=== PATIENT | male | born 1970 | race Hispanic/Latino ===

== ENCOUNTER 2021-12-09 20:49 | Inpatient (IN) | payer SELFPAY ==
[~2021-12-09] VITALS: Ht 152 cm; Wt 107.0 kg
[2021-12-09 21:10] LABS: BASOPHILS % 0.3 % (0.0-1.0); EOSINOPHILS # (AUTO) 0.1 (0.0-0.4); EOSINOPHILS % 0.8 % (0.0-6.0); HEMATOCRIT 35.9 % (38.2-49.6); HEMOGLOBIN 11.7 g/dL (14.0-18.0); LYMPHOCYTES # (AUTO) 0.9 (1.0-3.2); LYMPHOCYTES % 6.9 % (18.0-39.1); MEAN CORPUSCULAR HGB CONC 32.6 g/dL (31-35); MEAN CORPUSCULAR VOLUME 89.1 fL (81-99); MONOCYTES # (AUTO) 0.8 (0.2-0.8); MONOCYTES % 5.7 % (4.4-11.3); NEUTROPHILS # (AUTO) 11.2 (2.1-6.9); NEUTROPHILS % 85.2 % (38.7-80.0); PLATELET COUNT 294 x10e3/uL (140-360); RED BLOOD COUNT 4.03 x10e6/uL (4.3-5.7); RED CELL DISTRIBUTION WIDTH 12.3 % (11.7-14.4)
[2021-12-09 21:28] LABS: CLARITY,URINE SL CLOUDY (CLEAR); COLOR,URINE YELLOW (YELLOW); KETONES,URINE NEGATIVE (NEGATIVE); LEUKOCYTE ESTERASE ,URINE SMALL (NEGATIVE); NITRITE,URINE NEGATIVE (NEGATIVE); PROTEIN,URINE DIPSTICK 2+ (NEGATIVE); URINE UROBILINOGEN 0.2 mg/dL (0.2 - 1)
[2021-12-09 21:29] LABS: ALBUMIN 2.2 g/dL (3.5-5.0); ALBUMIN/GLOBULIN RATIO 0.3 (0.8-2.0); ANION GAP 26.9 mmol/L (8-16); CALCIUM 8.7 mg/dL (8.4-10.2); CREATININE, SERUM 13.59 mg/dL (0.72-1.25)
[2021-12-09] MEDS ORDERED: SODIUM BICARBONATE 8.4% INJ 50 ML SYR IV STA ×2 (21:31→21:49)
[2021-12-09] MEDS ORDERED: ALBUTEROL SULF 0.083% NEB SOLN 3 ML NEB NEB STA (21:31)
[2021-12-09] MEDS ORDERED: DEXTROSE 50% SYRINGE 50 ML IV STA (21:31)
[2021-12-09 21:32] LABS: POTASSIUM 6.9 mmol/L (3.5-5.1)
[2021-12-09 21:32] LABS: BACTERIA,URINE FEW /HPF; EPITHELIAL CELLS,URINE FEW /LPF; RBC,URINE 21-50 /HPF (0-5)
[2021-12-09 21:36] LABS: CREATINE KINASE MB 3.6 ng/mL (0-5.0)
[2021-12-09] MEDS ORDERED: SOD POLYSTYRENE SULFONATE SUSP 15 GM/60 ML BTL PO ONE (21:45)
[2021-12-09] MEDS ORDERED: FUROSEMIDE INJ 100 MG in SODIUM CHLORIDE 0.9% 90 ML IV SCH (21:45)
[2021-12-09] MEDS ORDERED: INSULIN REGULAR, HUMAN 100 UNIT/1 ML IV ONE (21:45)
[2021-12-09] MEDS ORDERED: FUROSEMIDE INJ 10 MG/ML 10 ML VIAL IV ONE (21:45)
[2021-12-09] MEDS ORDERED: CALCIUM GLUCONATE 10% INJ 13.95 MEQ in SODIUM CHLORIDE 0.9% 100 ML 100 ML IV ONE (21:45)
[2021-12-09] MEDS ORDERED: CALCIUM GLUC 1 G/50 ML NACL 50 ML IV ONE (21:51)
[2021-12-09] MEDS ORDERED: CALCIUM GLUC 1 G/50 ML NACL 100 ML IV ONE (21:56)
[2021-12-09] MEDS: CALCIUM GLUC 1 G/50 ML NACL 50 ML IV SCH ×3 (22:00→23:11)
[2021-12-09] MEDS ORDERED: SODIUM CHLORIDE 0.9% 100 ML ONE (22:05)
[2021-12-09] MEDS ORDERED: SODIUM BICARBONATE 8.4% SYRING 50 ML ONE (22:05)
[2021-12-09] MEDS ORDERED: FUROSEMIDE INJ 10 MG/ML 4 ML VIAL ONE (22:06)
[2021-12-09] MEDS ORDERED: ENOXAPARIN INJ 80 MG/0.8 ML SYR SC SCH (22:30)
[2021-12-09] MEDS ORDERED: ONDANSETRON HCL INJ 2MG/ML 2ML 2 MG/ML VIAL IV PRN (22:30)
[2021-12-09] MEDS ORDERED: SODIUM CHLORIDE FLUSH 10 ML SYR INJ PRN (22:30)
[2021-12-09] MEDS: CEFTRIAXONE 2 GM in SODIUM CHLORIDE 0.9% 100 ML IV SCH (23:25)
[2021-12-09 23:27] LABS: CREATINE KINASE MB 3.7 ng/mL (0-5.0)
[2021-12-09] MEDS ORDERED: HYDRALAZINE HCL 20 MG/ML VIAL IV STA (23:28)
[2021-12-09] MEDS ORDERED: HYDRALAZINE HCL 20 MG/ML VIAL IV PRN (23:30)
[2021-12-09] MEDS ORDERED: HYDRALAZINE HCL 20 MG/ML VIAL ONE (23:41)
[2021-12-10] VITALS (20 sets, daily range): BP systolic 132–188; BP diastolic 80–126
[2021-12-10 00:14] LABS: INR 1.12; PROTHROMBIN TIME 15.2 seconds (11.9-14.5)
[2021-12-10 00:15] LABS: PARTIAL THROMBOPLASTIN TIME 27.8 seconds (23.8-35.5)
[2021-12-10 00:43] LABS: CREATINE KINASE MB 3.4 ng/mL (0-5.0)
[2021-12-10] MEDS ORDERED: SODIUM BICARBONATE 8.4% INJ 50 ML SYR IV STA (00:43)
[2021-12-10] MEDS ORDERED: SOD POLYSTYRENE SULFONATE SUSP 15 GM/60 ML BTL PO ONE ×2 (00:45→08:00)
[2021-12-10] MEDS ORDERED: INSULIN REGULAR, HUMAN 100 UNIT/1 ML IV ONE ×2 (00:45→08:00)
[2021-12-10] MEDS ORDERED: FUROSEMIDE INJ 10 MG/ML 10 ML VIAL IV ONE (00:45)
[2021-12-10] MEDS ORDERED: DEXTROSE 50% SYRINGE 50 ML IV STA (00:50)
[2021-12-10] MEDS ORDERED: SODIUM BICARBONATE 8.4% SYRING 100 ML ONE (01:04)
[2021-12-10] MEDS ORDERED: SOD POLYSTYRENE SULFONATE SUSP 15 GM/60 ML BTL ONE (01:04)
[2021-12-10] MEDS ORDERED: FUROSEMIDE INJ 10 MG/ML 4 ML VIAL ONE (01:04)
[2021-12-10] MEDS ORDERED: DEXTROSE 50% SYRINGE 50 ML IV ONE ×2 (01:04→08:00)
[2021-12-10] MEDS: CALCIUM GLUC 1 G/50 ML NACL 50 ML IV SCH ×3 (01:11→03:00)
[2021-12-10] MEDS ORDERED: HYDRALAZINE HCL 20 MG/ML VIAL IV PRN (02:15)
[2021-12-10] MEDS ORDERED: DEXTROSE 50% SYRINGE 50 ML IV PRN (02:15)
[2021-12-10] MEDS ORDERED: DIPHENHYDRAMINE HCL 25 MG CAP PO PRN (02:15)
[2021-12-10] MEDS ORDERED: BENZONATATE 100 MG CAP PO PRN (02:15)
[2021-12-10] MEDS ORDERED: DOCUSATE SODIUM 100 MG CAP PO PRN (02:15)
[2021-12-10] MEDS ORDERED: ACETAMINOPHEN 325 MG TAB PO PRN (02:15)
[2021-12-10] MEDS ORDERED: LACTULOSE SYRUP 20 GM/30 ML UDC PO SCH (02:15)
[2021-12-10] MEDS ORDERED: SIMETHICONE 80 MG CHEW PO PRN (02:15)
[2021-12-10] MEDS ORDERED: CHLORASEPTIC SPRAY 177 ML BTL MM PRN (02:15)
[2021-12-10] MEDS ORDERED: MELATONIN 5 MG TABLET PO PRN (02:15)
[2021-12-10] MEDS ORDERED: ALBUTEROL/IPRATROPIUM 3 ML NEB NEB PRN (02:15)
[2021-12-10] MEDS ORDERED: LIDOCAINE 4% PATCH TP PRN (02:15)
[2021-12-10] MEDS ORDERED: ONDANSETRON HCL INJ 2MG/ML 2ML 2 MG/ML VIAL IV PRN (02:15)
[2021-12-10 06:15] LABS: BASOPHILS # (AUTO) 0.1 (0.0-0.1); BASOPHILS % 0.3 % (0.0-1.0); EOSINOPHILS # (AUTO) 0.2 (0.0-0.4); EOSINOPHILS % 1.3 % (0.0-6.0); HEMATOCRIT 31.2 % (38.2-49.6); HEMOGLOBIN 10.4 g/dL (14.0-18.0); LYMPHOCYTES # (AUTO) 0.9 (1.0-3.2); LYMPHOCYTES % 5.9 % (18.0-39.1); MEAN CORPUSCULAR HEMOGLOBIN 29.2 pg (28-32); MEAN CORPUSCULAR HGB CONC 33.3 g/dL (31-35); MEAN CORPUSCULAR VOLUME 87.6 fL (81-99); MONOCYTES # (AUTO) 0.8 (0.2-0.8); MONOCYTES % 5.1 % (4.4-11.3); NEUTROPHILS # (AUTO) 12.8 (2.1-6.9); NEUTROPHILS % 86.1 % (38.7-80.0); PLATELET COUNT 323 x10e3/uL (140-360); RED BLOOD COUNT 3.56 x10e6/uL (4.3-5.7); RED CELL DISTRIBUTION WIDTH 12.5 % (11.7-14.4)
[2021-12-10 06:52] LABS: ALBUMIN/GLOBULIN RATIO 0.3 (0.8-2.0); ANION GAP 27.3 mmol/L (8-16); CALCIUM 9.5 mg/dL (8.4-10.2); CREATININE, SERUM 13.99 mg/dL (0.72-1.25)
[2021-12-10 07:04] LABS: POTASSIUM 6.3 mmol/L (3.5-5.1)
[2021-12-10 07:10] LABS: CREATINE KINASE MB 4.2 ng/mL (0-5.0)
[2021-12-10] MEDS ORDERED: PANTOPRAZOLE SOD 40 MG TABEC PO SCH (07:30)
[2021-12-10] MEDS ORDERED: CALCIUM GLUC 1 G/50 ML NACL 100 ML IV ONE (08:00)
[2021-12-10] MEDS ORDERED: SODIUM BICARBONATE 8.4% 50 ML VIAL IV ONE (08:00)
[2021-12-10] MEDS ORDERED: HEPARIN SOD (PORCINE) 1000 UNIT/ML SDV ONE (08:48)
[2021-12-10] MEDS ORDERED: SODIUM CHLORIDE 0.9% 1000ML 2,000 ML ONE (10:58)
[2021-12-10 10:59] LABS: PHOSPHORUS 9.2 MG/DL (2.3-4.7)
[2021-12-10] MEDS ORDERED: NIFEDIPINE CR 30 MG TAB PO SCH (11:45)
[2021-12-10 11:47] LABS: HIV 1&2 AB SCREEN NON-REACTIVE (NONREACTIVE)
[2021-12-10] MEDS ORDERED: SODIUM CHLORIDE 0.9% 250ML 250 ML IV ONE (12:45)
[2021-12-10] MEDS ORDERED: FUROSEMIDE INJ 100 MG in SODIUM CHLORIDE 0.9% 90 ML IV SCH (13:00)
[2021-12-10 13:14] LABS: HEMATOCRIT 28.3 % (38.2-49.6); HEMOGLOBIN 9.1 g/dL (14.0-18.0)
[2021-12-10 13:24] LABS: INR 1.26; PROTHROMBIN TIME 16.7 seconds (11.9-14.5)
[2021-12-10] MEDS: DEXAMETHASONE SOD PHOS 10 MG/1 ML VIAL IV SCH (16:17)
[2021-12-10] MEDS: METOPROLOL TARTRATE 25 MG TAB PO SCH (16:18)
[2021-12-10] MEDS: ZINC SULFATE 50 MG CAP PO SCH (16:18)
[2021-12-10] MEDS: ASCORBIC ACID 500 MG TAB PO SCH ×2 (16:18→16:19)
[2021-12-10] MEDS: CEFTRIAXONE 2 GM in SODIUM CHLORIDE 0.9% 100 ML IV SCH (16:18)
[2021-12-10 16:29] LABS: THYROID STIMULATING HORMONE 1.31 uIU/mL (0.350-4.940)
[2021-12-10] MEDS ORDERED: ENOXAPARIN 30 MG/0.3 ML SYR SC SCH (17:00)
[2021-12-10] MEDS ORDERED: CARVEDILOL 3.125 MG TAB PO SCH (17:00)
[2021-12-10 18:48] LABS: HEMATOCRIT 25.1 % (38.2-49.6); HEMOGLOBIN 8.4 g/dL (14.0-18.0)
[2021-12-10] MEDS ORDERED: SODIUM CHLORIDE 0.9% 250ML 500 ML ONE (23:01)
[2021-12-11] VITALS (23 sets, daily range): BP systolic 130–171; BP diastolic 9–100
[2021-12-11 00:13] LABS: HEMATOCRIT 25.5 % (38.2-49.6); HEMOGLOBIN 8.1 g/dL (14.0-18.0)
[2021-12-11] MEDS ORDERED: SODIUM CHLORIDE 0.9% 250ML 250 ML ONE (01:48)
[2021-12-11 05:42] LABS: BASOPHILS # (AUTO) 0.1 (0.0-0.1); BASOPHILS % 0.4 % (0.0-1.0); EOSINOPHILS # (AUTO) 0.1 (0.0-0.4); EOSINOPHILS % 0.7 % (0.0-6.0); HEMATOCRIT 23.1 % (38.2-49.6); HEMOGLOBIN 7.6 g/dL (14.0-18.0); LYMPHOCYTES # (AUTO) 1.1 (1.0-3.2); LYMPHOCYTES % 8.7 % (18.0-39.1); MEAN CORPUSCULAR HEMOGLOBIN 29.9 pg (28-32); MEAN CORPUSCULAR HGB CONC 32.9 g/dL (31-35); MEAN CORPUSCULAR VOLUME 90.9 fL (81-99); MONOCYTES # (AUTO) 0.8 (0.2-0.8); MONOCYTES % 6.1 % (4.4-11.3); NEUTROPHILS # (AUTO) 10.1 (2.1-6.9); NEUTROPHILS % 82.4 % (38.7-80.0); PLATELET COUNT 333 x10e3/uL (140-360); RED BLOOD COUNT 2.54 x10e6/uL (4.3-5.7); RED CELL DISTRIBUTION WIDTH 13.1 % (11.7-14.4)
[2021-12-11 06:16] LABS: ALBUMIN 2.3 g/dL (3.5-5.0); ALBUMIN/GLOBULIN RATIO 0.5 (0.8-2.0); CALCIUM 7.3 mg/dL (8.4-10.2); CREATININE, SERUM 12.51 mg/dL (0.72-1.25)
[2021-12-11 06:37] LABS: MAGNESIUM 2.7 MG/DL (1.3-2.1); PHOSPHORUS 10.9 MG/DL (2.3-4.7)
[2021-12-11] MEDS ORDERED: SODIUM CHLORIDE 0.9% 1000ML 2,000 ML ONE (09:09)
[2021-12-11] MEDS: CEFTRIAXONE 2 GM in SODIUM CHLORIDE 0.9% 100 ML IV SCH (10:59)
[2021-12-11] MEDS: DEXAMETHASONE SOD PHOS 10 MG/1 ML VIAL IV SCH (10:59)
[2021-12-11] MEDS: ASCORBIC ACID 500 MG TAB PO SCH ×2 (11:00→17:11)
[2021-12-11] MEDS: ZINC SULFATE 50 MG CAP PO SCH (11:00)
[2021-12-11] MEDS: METOPROLOL TARTRATE 25 MG TAB PO SCH ×2 (11:00→17:10)
[2021-12-11 14:39] LABS: BASOPHILS % 0.3 % (0.0-1.0); EOSINOPHILS % 0.2 % (0.0-6.0); HEMATOCRIT 25.1 % (38.2-49.6); HEMOGLOBIN 7.9 g/dL (14.0-18.0); LYMPHOCYTES # (AUTO) 0.7 (1.0-3.2); MEAN CORPUSCULAR HGB CONC 31.5 g/dL (31-35); MEAN CORPUSCULAR VOLUME 92.3 fL (81-99); MONOCYTES # (AUTO) 0.5 (0.2-0.8); MONOCYTES % 3.4 % (4.4-11.3); NEUTROPHILS # (AUTO) 12.9 (2.1-6.9); NEUTROPHILS % 89.9 % (38.7-80.0); PLATELET COUNT 342 x10e3/uL (140-360); RED BLOOD COUNT 2.72 x10e6/uL (4.3-5.7)
[2021-12-11 14:44] LABS: ANION GAP 19.6 mmol/L (8-16); CALCIUM 8.4 mg/dL (8.4-10.2); CREATININE, SERUM 8.11 mg/dL (0.72-1.25); POTASSIUM 4.6 mmol/L (3.5-5.1)
[2021-12-11 18:49] LABS: HEMOGLOBIN 8.1 g/dL (14.0-18.0)
[2021-12-12] VITALS (22 sets, daily range): BP systolic 100–175; BP diastolic 57–113
[2021-12-12 00:35] LABS: HEMATOCRIT 24.1 % (38.2-49.6); HEMOGLOBIN 7.7 g/dL (14.0-18.0)
[2021-12-12 05:15] LABS: BASOPHILS % 0.3 % (0.0-1.0); EOSINOPHILS # (AUTO) 0.4 (0.0-0.4); EOSINOPHILS % 2.4 % (0.0-6.0); HEMATOCRIT 23.5 % (38.2-49.6); HEMOGLOBIN 7.6 g/dL (14.0-18.0); LYMPHOCYTES # (AUTO) 1.9 (1.0-3.2); LYMPHOCYTES % 12.5 % (18.0-39.1); MEAN CORPUSCULAR HEMOGLOBIN 29.3 pg (28-32); MEAN CORPUSCULAR HGB CONC 32.3 g/dL (31-35); MEAN CORPUSCULAR VOLUME 90.7 fL (81-99); MONOCYTES % 6.3 % (4.4-11.3); NEUTROPHILS # (AUTO) 11.6 (2.1-6.9); NEUTROPHILS % 77.1 % (38.7-80.0); PLATELET COUNT 377 x10e3/uL (140-360); RED BLOOD COUNT 2.59 x10e6/uL (4.3-5.7); RED CELL DISTRIBUTION WIDTH 12.6 % (11.7-14.4)
[2021-12-12 05:22] LABS: CALCIUM 7.7 mg/dL (8.4-10.2); CREATININE, SERUM 9.38 mg/dL (0.72-1.25)
[2021-12-12] MEDS: CEFTRIAXONE 2 GM in SODIUM CHLORIDE 0.9% 100 ML IV SCH (09:21)
[2021-12-12] MEDS: DEXAMETHASONE SOD PHOS 10 MG/1 ML VIAL IV SCH (09:21)
[2021-12-12] MEDS: METOPROLOL TARTRATE 25 MG TAB PO SCH ×2 (09:22→17:00)
[2021-12-12] MEDS: ASCORBIC ACID 500 MG TAB PO SCH ×2 (09:22→17:00)
[2021-12-12] MEDS: ZINC SULFATE 50 MG CAP PO SCH (09:22)
[2021-12-12] MEDS: NIFEDIPINE CR 30 MG TAB PO SCH (09:23)
[2021-12-12 12:12] LABS: HEMATOCRIT 26.7 % (38.2-49.6); HEMOGLOBIN 8.5 g/dL (14.0-18.0)
[2021-12-12 20:07] LABS: HEMATOCRIT 25.8 % (38.2-49.6); HEMOGLOBIN 8.3 g/dL (14.0-18.0)
[2021-12-13] VITALS (7 sets, daily range): BP systolic 112–142; BP diastolic 77–94
[2021-12-13 05:45] LABS: BASOPHILS # (AUTO) 0.1 (0.0-0.1); BASOPHILS % 0.4 % (0.0-1.0); EOSINOPHILS # (AUTO) 0.3 (0.0-0.4); HEMATOCRIT 24.5 % (38.2-49.6); HEMOGLOBIN 7.7 g/dL (14.0-18.0); LYMPHOCYTES # (AUTO) 2.2 (1.0-3.2); MEAN CORPUSCULAR HEMOGLOBIN 28.9 pg (28-32); MEAN CORPUSCULAR HGB CONC 31.4 g/dL (31-35); MEAN CORPUSCULAR VOLUME 92.1 fL (81-99); MONOCYTES % 6.6 % (4.4-11.3); NEUTROPHILS # (AUTO) 11.6 (2.1-6.9); NEUTROPHILS % 74.3 % (38.7-80.0); PLATELET COUNT 347 x10e3/uL (140-360); RED BLOOD COUNT 2.66 x10e6/uL (4.3-5.7); RED CELL DISTRIBUTION WIDTH 12.3 % (11.7-14.4)
[2021-12-13 06:47] LABS: ALBUMIN 2.3 g/dL (3.5-5.0); ALBUMIN/GLOBULIN RATIO 0.4 (0.8-2.0); ANION GAP 20.4 mmol/L (8-16); CALCIUM 8.1 mg/dL (8.4-10.2); CREATININE, SERUM 6.97 mg/dL (0.72-1.25); POTASSIUM 4.4 mmol/L (3.5-5.1)
[2021-12-13] MEDS: DEXAMETHASONE SOD PHOS 10 MG/1 ML VIAL IV SCH (08:48)
[2021-12-13] MEDS: CEFTRIAXONE 2 GM in SODIUM CHLORIDE 0.9% 100 ML IV SCH (08:48)
[2021-12-13] MEDS: METOPROLOL TARTRATE 25 MG TAB PO SCH ×2 (08:49→16:16)
[2021-12-13] MEDS ORDERED: ONDANSETRON HCL 4 MG ORAL DISINTEGRATING TAB PO PRN (11:00)
[2021-12-13] MEDS ORDERED: FENTANYL CITRATE/PF 100MCG/2 ML INJ ONE (11:51)
[2021-12-13] MEDS ORDERED: MIDAZOLAM HCL 2 MG/2 ML VIAL ONE (11:51)
[2021-12-13] MEDS ORDERED: SODIUM CHLORIDE 0.9% 250ML 250 ML ONE (11:53)
[2021-12-13] MEDS ORDERED: LIDOCAINE HCL 1% LOCAL INJ 20 ML VIAL ONE (11:57)
[2021-12-13] MEDS ORDERED: HYDRALAZINE HCL 20 MG/ML VIAL ONE (12:23)
[2021-12-13] MEDS: ASCORBIC ACID 500 MG TAB PO SCH ×2 (14:29→16:16)
[2021-12-13] MEDS: ZINC SULFATE 50 MG CAP PO SCH (14:29)
[2021-12-13] MEDS: NIFEDIPINE CR 30 MG TAB PO SCH (14:30)
[2021-12-13] MEDS: PANTOPRAZOLE SOD 40 MG TABEC PO SCH (16:16)
[2021-12-13] MEDS ORDERED: AZITHROMYCIN 250 MG TAB PO SCH (22:00)
[2021-12-13 22:08] LABS: ALPHA 2 GLOBULIN URINE PEP 14.3 % (.)
[2021-12-14] VITALS (8 sets, daily range): BP systolic 98–157; BP diastolic 66–94
[2021-12-14 06:01] LABS: BASOPHILS % 0.2 % (0.0-1.0); EOSINOPHILS # (AUTO) 0.2 (0.0-0.4); HEMATOCRIT 24.5 % (38.2-49.6); HEMOGLOBIN 7.8 g/dL (14.0-18.0); LYMPHOCYTES # (AUTO) 2.5 (1.0-3.2); LYMPHOCYTES % 15.1 % (18.0-39.1); MEAN CORPUSCULAR HEMOGLOBIN 29.4 pg (28-32); MEAN CORPUSCULAR HGB CONC 31.8 g/dL (31-35); MEAN CORPUSCULAR VOLUME 92.5 fL (81-99); MONOCYTES # (AUTO) 1.1 (0.2-0.8); NEUTROPHILS % 73.9 % (38.7-80.0); PLATELET COUNT 380 x10e3/uL (140-360); RED BLOOD COUNT 2.65 x10e6/uL (4.3-5.7); RED CELL DISTRIBUTION WIDTH 12.4 % (11.7-14.4)
[2021-12-14 06:21] LABS: ANION GAP 20.1 mmol/L (8-16); CALCIUM 7.8 mg/dL (8.4-10.2); CREATININE, SERUM 8.97 mg/dL (0.72-1.25); POTASSIUM 4.1 mmol/L (3.5-5.1)
[2021-12-14] MEDS: PANTOPRAZOLE SOD 40 MG TABEC PO SCH ×2 (07:52→08:37)
[2021-12-14] MEDS: DEXAMETHASONE SOD PHOS 10 MG/1 ML VIAL IV SCH (08:36)
[2021-12-14] MEDS: CEFTRIAXONE 2 GM in SODIUM CHLORIDE 0.9% 100 ML IV SCH (08:37)
[2021-12-14] MEDS: METOPROLOL TARTRATE 25 MG TAB PO SCH ×2 (08:37→16:39)
[2021-12-14] MEDS: ASCORBIC ACID 500 MG TAB PO SCH ×2 (08:37→16:38)
[2021-12-14] MEDS: ZINC SULFATE 50 MG CAP PO SCH (08:37)
[2021-12-14] MEDS: NIFEDIPINE CR 30 MG TAB PO SCH (08:38)
[2021-12-14] MEDS ORDERED: SODIUM CHLORIDE 0.9% 1000ML 2,000 ML ONE (09:16)
[2021-12-14] MEDS ORDERED: HEPARIN SOD (PORCINE) 1000 UNIT/ML SDV ONE (12:57)
[2021-12-15] VITALS (7 sets, daily range): BP systolic 108–147; BP diastolic 75–93
[2021-12-15 05:59] LABS: BASOPHILS # (AUTO) 0.1 (0.0-0.1); BASOPHILS % 0.3 % (0.0-1.0); EOSINOPHILS # (AUTO) 0.3 (0.0-0.4); EOSINOPHILS % 1.8 % (0.0-6.0); HEMATOCRIT 25.2 % (38.2-49.6); LYMPHOCYTES # (AUTO) 3.2 (1.0-3.2); LYMPHOCYTES % 18.7 % (18.0-39.1); MEAN CORPUSCULAR HGB CONC 31.7 g/dL (31-35); MEAN CORPUSCULAR VOLUME 91.3 fL (81-99); MONOCYTES # (AUTO) 1.1 (0.2-0.8); MONOCYTES % 6.2 % (4.4-11.3); NEUTROPHILS # (AUTO) 11.6 (2.1-6.9); PLATELET COUNT 344 x10e3/uL (140-360); RED BLOOD COUNT 2.76 x10e6/uL (4.3-5.7); RED CELL DISTRIBUTION WIDTH 12.7 % (11.7-14.4)
[2021-12-15 06:16] LABS: ALBUMIN 2.5 g/dL (3.5-5.0); ALBUMIN/GLOBULIN RATIO 0.5 (0.8-2.0); ANION GAP 17.1 mmol/L (8-16); CALCIUM 7.6 mg/dL (8.4-10.2); CREATININE, SERUM 6.49 mg/dL (0.72-1.25); POTASSIUM 4.1 mmol/L (3.5-5.1)
[2021-12-15] MEDS: DEXAMETHASONE SOD PHOS 10 MG/1 ML VIAL IV SCH (09:15)
[2021-12-15] MEDS: METOPROLOL TARTRATE 25 MG TAB PO SCH ×2 (09:15→16:26)
[2021-12-15] MEDS: PANTOPRAZOLE SOD 40 MG TABEC PO SCH ×2 (09:15→16:26)
[2021-12-15] MEDS: NIFEDIPINE CR 30 MG TAB PO SCH (09:26)
[2021-12-15] MEDS: ASCORBIC ACID 500 MG TAB PO SCH ×2 (09:26→16:26)
[2021-12-15] MEDS: ZINC SULFATE 50 MG CAP PO SCH (09:26)
[2021-12-15] MEDS ORDERED: METHYLPREDNISOLONE SOD SUCC 1,000 MG/8 ML VIAL IV ONE (16:00)
[2021-12-15] MEDS: SODIUM CHLORIDE 0.9% IV SCH (16:26)
[2021-12-15] MEDS: METHYLPREDNISOLONE SOD SUCC IV SCH (16:26)
[2021-12-16] VITALS (7 sets, daily range): BP systolic 124–158; BP diastolic 74–101
[2021-12-16 08:29] LABS: BASOPHILS % 0.1 % (0.0-1.0); HEMATOCRIT 23.5 % (38.2-49.6); HEMOGLOBIN 7.8 g/dL (14.0-18.0); LYMPHOCYTES # (AUTO) 1.2 (1.0-3.2); LYMPHOCYTES % 7.9 % (18.0-39.1); MEAN CORPUSCULAR HEMOGLOBIN 29.5 pg (28-32); MEAN CORPUSCULAR HGB CONC 33.2 g/dL (31-35); MONOCYTES # (AUTO) 0.4 (0.2-0.8); MONOCYTES % 2.7 % (4.4-11.3); NEUTROPHILS # (AUTO) 13.3 (2.1-6.9); NEUTROPHILS % 86.3 % (38.7-80.0); PLATELET COUNT 378 x10e3/uL (140-360); RED BLOOD COUNT 2.64 x10e6/uL (4.3-5.7); RED CELL DISTRIBUTION WIDTH 12.6 % (11.7-14.4)
[2021-12-16] MEDS ORDERED: METHYLPREDNISOLONE SOD SUCC IV ONE (09:00)
[2021-12-16] MEDS ORDERED: METHYLPREDNISOLONE SOD SUCC 1,000 MG/8 ML VIAL IV ONE (09:00)
[2021-12-16] MEDS ORDERED: SODIUM CHLORIDE 0.9% IV ONE (09:00)
[2021-12-16 09:02] LABS: ALBUMIN 2.6 g/dL (3.5-5.0); ALBUMIN/GLOBULIN RATIO 0.5 (0.8-2.0); ANION GAP 22.5 mmol/L (8-16); CALCIUM 8.4 mg/dL (8.4-10.2); CREATININE, SERUM 8.64 mg/dL (0.72-1.25); POTASSIUM 4.5 mmol/L (3.5-5.1)
[2021-12-16] MEDS: METHYLPREDNISOLONE SOD SUCC IV SCH (09:18)
[2021-12-16] MEDS: ASCORBIC ACID 500 MG TAB PO SCH ×2 (09:18→16:33)
[2021-12-16] MEDS: SODIUM CHLORIDE 0.9% IV SCH (09:18)
[2021-12-16] MEDS: NIFEDIPINE CR 30 MG TAB PO SCH (09:18)
[2021-12-16] MEDS: ZINC SULFATE 50 MG CAP PO SCH (09:18)
[2021-12-16] MEDS: PANTOPRAZOLE SOD 40 MG TABEC PO SCH ×2 (09:18→16:33)
[2021-12-16] MEDS: METOPROLOL TARTRATE 25 MG TAB PO SCH ×2 (09:18→16:33)
[2021-12-16 21:34] LABS: % IRON SATURATION 22 % (15-50); IRON 60 ug/dL (65-175); TOTAL IRON BINDING CAPACITY 269 ug/dL (261-478); TRANSFERRIN 192 mg/dL (174-364)
[2021-12-17] VITALS (10 sets, daily range): BP systolic 114–159; BP diastolic 83–102
[2021-12-17 05:26] LABS: BASOPHILS % 0.1 % (0.0-1.0); HEMATOCRIT 21.9 % (38.2-49.6); HEMOGLOBIN 7.3 g/dL (14.0-18.0); LYMPHOCYTES # (AUTO) 1.1 (1.0-3.2); LYMPHOCYTES % 5.3 % (18.0-39.1); MEAN CORPUSCULAR HEMOGLOBIN 29.7 pg (28-32); MEAN CORPUSCULAR HGB CONC 33.3 g/dL (31-35); MONOCYTES # (AUTO) 1.1 (0.2-0.8); MONOCYTES % 5.4 % (4.4-11.3); NEUTROPHILS # (AUTO) 17.3 (2.1-6.9); NEUTROPHILS % 86.9 % (38.7-80.0); PLATELET COUNT 440 x10e3/uL (140-360); RED BLOOD COUNT 2.46 x10e6/uL (4.3-5.7)
[2021-12-17 05:49] LABS: ANION GAP 21.4 mmol/L (8-16); CALCIUM 7.8 mg/dL (8.4-10.2); CREATININE, SERUM 9.38 mg/dL (0.72-1.25); POTASSIUM 4.4 mmol/L (3.5-5.1)
[2021-12-17] MEDS: PANTOPRAZOLE SOD 40 MG TABEC PO SCH ×2 (07:30→17:49)
[2021-12-17] MEDS: ASCORBIC ACID 500 MG TAB PO SCH ×2 (09:00→17:00)
[2021-12-17] MEDS: NIFEDIPINE CR 30 MG TAB PO SCH (09:00)
[2021-12-17] MEDS ORDERED: METHYLPREDNISOLONE SOD SUCC 1,000 MG/8 ML VIAL IV ONE (09:00)
[2021-12-17] MEDS: METOPROLOL TARTRATE 25 MG TAB PO SCH ×2 (09:00→17:49)
[2021-12-17] MEDS: ZINC SULFATE 50 MG CAP PO SCH (09:00)
[2021-12-17] MEDS: SODIUM CHLORIDE 0.9% IV SCH (09:41)
[2021-12-17] MEDS: METHYLPREDNISOLONE SOD SUCC IV SCH (09:41)
[2021-12-17] MEDS ORDERED: SODIUM CHLORIDE 0.9% 1000ML 2,000 ML IV PRN (10:45)
[2021-12-17] MEDS ORDERED: HEPARIN SOD (PORCINE) 1000 UNIT/ML SDV IV PRN (10:45)
[2021-12-17] MEDS ORDERED: SODIUM CHLORIDE 0.9% 250ML 500 ML IV PRN (10:45)
[2021-12-17] MEDS ORDERED: ALBUMIN 25% 12.5GM 0.25 GM/ML BTL IV PRN (10:45)
[2021-12-18 01:15] VITALS: BP 125/79
[2021-12-18 05:51] VITALS: BP 144/83
[2021-12-18 05:53] LABS: BASOPHILS % 0.1 % (0.0-1.0); HEMATOCRIT 22.7 % (38.2-49.6); HEMOGLOBIN 7.6 g/dL (14.0-18.0); LYMPHOCYTES % 6.1 % (18.0-39.1); MEAN CORPUSCULAR HEMOGLOBIN 29.9 pg (28-32); MEAN CORPUSCULAR HGB CONC 33.5 g/dL (31-35); MEAN CORPUSCULAR VOLUME 89.4 fL (81-99); MONOCYTES # (AUTO) 1.1 (0.2-0.8); NEUTROPHILS # (AUTO) 13.2 (2.1-6.9); NEUTROPHILS % 85.1 % (38.7-80.0); PLATELET COUNT 446 x10e3/uL (140-360); RED BLOOD COUNT 2.54 x10e6/uL (4.3-5.7); RED CELL DISTRIBUTION WIDTH 13.5 % (11.7-14.4)
[2021-12-18 06:15] LABS: ANION GAP 18.4 mmol/L (8-16); CALCIUM 7.6 mg/dL (8.4-10.2); CREATININE, SERUM 6.41 mg/dL (0.72-1.25); POTASSIUM 4.4 mmol/L (3.5-5.1)
[2021-12-18] MEDS: PANTOPRAZOLE SOD 40 MG TABEC PO SCH (07:30)
[2021-12-18 08:00] VITALS: BP 144/83
[2021-12-18 08:02] VITALS: BP 146/91
[2021-12-18] MEDS: METOPROLOL TARTRATE 25 MG TAB PO SCH (09:00)
[2021-12-18] MEDS: NIFEDIPINE CR 30 MG TAB PO SCH (09:00)
[2021-12-18] MEDS: ASCORBIC ACID 500 MG TAB PO SCH (09:00)
[2021-12-18] MEDS ORDERED: PREDNISONE 20 MG TAB PO SCH (09:00)
[2021-12-18] MEDS: ZINC SULFATE 50 MG CAP PO SCH (09:00)
[2021-12-18 12:04] VITALS: BP 94/62
[2021-12-18] MEDS ORDERED: METOPROLOL TART25 GM PO (14:10)
[2021-12-18] MEDS ORDERED: PROCARDIA XL30 MG PO (14:11)
[2021-12-18] MEDS ORDERED: PREDNISONE20 MG PO (14:11)
== END 2021-12-18 14:47 | disposition home or self-care (01) | DRG 698 ==
LOC: ER 20:52 → ERHOLD 22:28 → IMCU 12-10 01:47 → ICU 12-10 17:25 → MED/SURG2 12-12 11:48
PROVIDERS: ADMIT Internal Medicine; ATTEND Internal Medicine
PROC: 02HV33Z Insertion of Infusion Device into Superior Vena Cava, Percutaneous Approach (ICD-10-PCS; principal; 2021-12-10)
PROC: 5A1D70Z Performance of Urinary Filtration, Intermittent, Less than 6 Hours Per Day (ICD-10-PCS; 2021-12-10)
PROC: 3E0333Z Introduction of Anti-inflammatory into Peripheral Vein, Percutaneous Approach (ICD-10-PCS; 2021-12-10)
PROC: 30233L1 Transfusion of Nonautologous Fresh Plasma into Peripheral Vein, Percutaneous Approach (ICD-10-PCS; 2021-12-11)
PROC: 30233K1 Transfusion of Nonautologous Frozen Plasma into Peripheral Vein, Percutaneous Approach (ICD-10-PCS; 2021-12-11)
PROC: 0TB13ZX Excision of Left Kidney, Percutaneous Approach, Diagnostic (ICD-10-PCS; 2021-12-13)
DX: N05.7 Unspecified nephritic syndrome with diffuse crescentic glomerulonephritis (principal); U07.1 COVID-19; I21.A1 Myocardial infarction type 2; J12.82 Pneumonia due to coronavirus disease 2019; J96.20 Acute and chronic respiratory failure, unspecified whether with hypoxia or hypercapnia; I12.0 Hypertensive chronic kidney disease with stage 5 chronic kidney disease or end stage renal disease; K92.1 Melena; E87.2 Acidosis; N18.6 End stage renal disease; N17.9 Acute kidney failure, unspecified; E87.5 Hyperkalemia; I16.0 Hypertensive urgency; D64.9 Anemia, unspecified
CPT/HCPCS: 36415; 36556; 50200; 51700; 71045; 74470; 76770; 76937; 76942; 77001; 78278; 80048; 80053; 80061; 81001; 82550; 82553; 82607; 82746; 82948; 83540; 83735; 83880; 83970; 84100; 84132; 84165; 84166; 84443; 84466; 84484; 84550; 85014; 85018; 85025; 85045; 85610; 85730; 86021; 86039; 86160; 86431; 86706; 86850; 86900; 86920; 87040; 87340; 87390; 90962; 93005; 93306; 94799; 99152; 99153; 99285; A9512; C1752; G0433; G0435; J0360; J0456; J0610; J0696; J1100; J1644; J1650; J1817; J1940; J2001; J2250; J2930; J3010; J7030; J7050; J7512; J7799; P9017; U0002